=== PATIENT | female | born 1940 | race Caucasian/White ===

== ENCOUNTER → 2018-01-26 | Outpatient (CLI) | payer OTHER | LOC: FIMAGING 10:31 | PROVIDERS: ATTEND Family Medicine | DX: S32.020A Wedge compression fracture of second lumbar vertebra, initial encounter for closed fracture (principal); M51.36 Other intervertebral disc degeneration, lumbar region ==

== ENCOUNTER 2018-01-27 22:48 | Inpatient (IN) | payer OTHER ==
--- NOTE | 2018-01-27 23:40 | EDPHY ---
General Time Seen by Provider: 01/27/18 23:26 Narrative: CHIEF COMPLAINT: Back pain HISTORY OF PRESENT ILLNESS: Patient presents by private vehicle with her spouse with complaints of low back pain. This has been present since January 22. This occurred the day after a long day of gardening in her [place]. She denies any direct blow or trauma to the back. She woke on the with severe low back pain. Minimal radiation to the right leg. No numbness or tingling. No weakness. No incontinence of bowel or bladder. No retention of bowel bladder. She has significant low back pain that was worse with laying down or with ambulation. No position of comfort. She was seen by primary care physician and been taking ibuprofen, and subsequently diclofenac by mouth. She had an x-ray performed yesterday, but does not know the results. She has no chest pain or shortness of breath. She does have ongoing left knee pain for which she has received physical therapy and improving. No fever. No back injections. No history of surgery on the low back. No other associated complaints or modifying factors REVIEW OF SYSTEMS: 10 systems were reviewed and negative with the exception of the elements mentioned in the history of present illness. PCP: Dr. Floresita Diego SPECIALISTS: Dr. Lema PAST MEDICAL HISTORY: Hypertension, dyslipidemia, sciatic PAST SURGICAL HISTORY: No recent surgical history SOCIAL HISTORY: Nonsmoker. Lives independently with her spouse. 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 FAMILY HISTORY: Noncontributory EXAMINATION: General Appearance: Alert. Speaking in full sentences. Well appearing. He appears to be uncomfortable but in no acute distress Head: normocephalic, atraumatic Eyes: Pupils equal and round, no conjunctival pallor or injection ENT, Mouth: Mucous membranes moist Neck: Normal inspection, supple, non-tender Respiratory: Lungs are clear to auscultation Cardiovascular: Regular rate and rhythm. No murmur. Good signs of perfusion lower extremities symmetrically. Back: Mildly kyphotic appearance. There is midline tenderness on the lumbar spine over L2 and L3. No crepitus, step-off or deformity. Range of motion is limited by pain. Neurological: GCS 15. A&O, nonfocal, antalgic but steady gait without ataxia. Patellar reflexes are symmetric at 2+. Strength is 5/5 in the knees, ankles and great toes. Light sensation is symmetric in the lower extremities. Skin: Warm and dry, no rash Extremities: Nontender, no pedal edema Psychiatric: Mood and affect normal DIFFERENTIAL DIAGNOSES: Including but not limited to the vertebral fracture, sciatica, aneurysm, diskitis, spondylolisthesis, acute cord compression, muscular strain, disc herniation, disc rupture MDM: 11:40 p.m. Acute low back pain with possible new compression deformity of L2 of uncertain chronicity but new since 2008. The patient does have tenderness in this location on exam. I do not appreciate any evidence by history examination that would suggest acute cord compression or cauda equina. She is ambulatory but with significant pain. Due to her age, possible fracture, pain intolerance and IV will be established. Pain medication has been ordered. I have ordered MRI of the lumbar spine without contrast. I do not think that diskitis is likely as she has no fever, no hardware, no history of epidural or intrathecal injections. She is neuro intact distally. She is in no acute distress. 12:30 a.m. Patient re-evaluated. Pain is improved. 12:50 a.m. CBC, chemistry and inflammatory markers are within normal limits. MRI pending. 1:55 a.m. Notified by radiologist Dr. Castillo. Chronic disc bulge at multiple levels of the lumbar spine. No acute fracture or edema. Remainder of findings discussed as documented. I re-evaluated the patient. She still has moderate pain in the lumbar spine and now also as pain to the right posterior superior iliac spine. The patient was attempted to ambulate, but I do feel she is too unsteady on her feet. Also her pain is not controlled. I have ordered x-ray of the right hip and pelvis. I have ordered repeat pain medication. I will discuss with hospitalist for admission. 2:30 a.m. Case discussed with hospitalist Dr. Gibbs. She will admit the patient to her service. Patient is admitted in stable condition. X-ray of the hip as been performed, and it yielded only degenerative changes. No acute findings. SUPERVISION: Patient was independently examined, but I discussed the case with my secondary supervising physician Dr. Miller CONSULTATION: None - Diagnostics Imaging Results: Imaging Impressions Lumbar Spine MRI 01/27/18 23:40 Impression: 1. No evidence of acute fracture about the lumbar spine. Red marrow replacement of bone marrow possibly from underlying anemia. 2. Mild disk disease at L1-L2, L3-L4, and L4-L5 as detailed above. The study was performed as an emergency on-call case and discussed by telephone with Reece Jacobs PA-C at 0158 hrs. The final interpretation is concordant with the original communication. Hip X-Ray 01/28/18 02:07 Impression: Degenerative features with no acute osseous abnormality, and sequela of prior left hip arthroplasty. - History Smoking Status: Never smoked - Objective Vital Signs: Initial Vital Signs Temperature (C) 97.7 F 01/27/18 22:51 Heart Rate 96 01/27/18 22:51 Respiratory Rate 18 01/27/18 22:51 Blood Pressure 191/125 H 01/27/18 22:51 O2 Sat (%) 96 01/27/18 22:51 O2 Delivery Mode Room Air O2 (L/minute) 1 Allergies/Adverse Reactions: prochlorperazine [From Compazine] Allergy (Unknown, Verified 01/28/18 10:19) Unknown Home Medications: Medication Instructions Recorded Aspirin [Aspirin 81mg (*)] 81 mg PO DAILY 01/02/15 Hydrochlorothiazide [HCTZ (*)] 6.25 mg PO DAILY 01/02/15 Multivitamins [Multivitamin (*)] 1 each PO DAILY 01/02/15 Lovastatin 10mg 10 mg PO HS 01/28/18 Methylcellulose [Citrucel] 500 mg PO BID 01/28/18 Polyethylene Glycol 3350 [Miralax 17 gm PO DAILY 01/28/18 17 gm (*)] Laboratory Results: Laboratory Results 01/27/18 23:55 01/27/18 23:55 Medications Given: Hydrocodone Bitart/Acetaminophen ([place] 5/325) 1 - 2 tab PO Q4HRS PRN PRN Reason: Pain, Moderate Able to Take PO Stop: 02/07/18 02:42 Last Admin: 01/28/18 16:30 Dose: 2 tab Ketorolac Tromethamine (Toradol) 15 mg IVP Q8HRS KHLOE Stop: 02/02/18 05:59 Last Admin: 01/28/18 14:48 Dose: 15 mg Miscellaneous Information (Patch Removal) 2 ea TD DAILY KHLOE Stop: 07/27/18 08:59 Last Admin: 01/28/18 08:28 Dose: Not Given Senna/Docusate Sodium (Senokot-S) 1 - 2 tab PO BID KHLOE PRN Reason: Protocol Stop: 07/27/18 08:59 Last Admin: 01/28/18 08:27 Dose: Not Given Discontinued Medications Sodium Chloride (Ns) 500 mls @ 0 mls/hr IV EDNOW ONE; Wide Open PRN Reason: Protocol Stop: 01/27/18 23:42 Last Admin: 01/27/18 23:53 Dose: 500 mls Lorazepam (Ativan) 0.5 mg PO EDNOW ONE Stop: 01/28/18 02:43 Last Admin: 01/28/18 02:47 Dose: 0.5 mg Miscellaneous Medication (Icy Hot Lidocaine/Menthol 4%/1% Patch) 2 patch TD EDNOW ONE Stop: 01/28/18 02:43 Last Admin: 01/28/18 02:48 Dose: 2 patch Morphine Sulfate (Morphine) 2 mg IVP EDNOW ONE Stop: 01/27/18 23:42 Last Admin: 01/27/18 23:53 Dose: 2 mg Morphine Sulfate (Morphine) 2 mg IVP EDNOW ONE Stop: 01/28/18 02:08 Last Admin: 01/28/18 02:25 Dose: 2 mg Polyethylene Glycol (Miralax) 17 gm PO DAILY KHLOE PRN Reason: Protocol Stop: 07/27/18 08:59 Last Admin: 01/28/18 08:24 Dose: 17 gm Departure - Departure Disposition: [facility] Inpatient Acute Clinical Impression: Low back pain Qualifiers: Chronicity: acute Back pain laterality: right Sciatica presence: with sciatica Sciatica laterality: sciatica of right side Qualified Code(s): M54.41 - Lumbago with sciatica, right side Condition: Good
[2018-01-27] MEDS ORDERED: NS 500 ML IV ONE (23:41)
[2018-01-28 00:02] LABS: PLATELET COUNT 217 10^3/uL (150-400)
[2018-01-28] MEDS ORDERED: LORazepam 0.5 MG TAB PO ONE (02:42)
[2018-01-28] MEDS ORDERED: LIDOCAINE 4%/MENTHOL 1% PATCH TD ONE ×2 (02:42→02:46)
[2018-01-28] MEDS ORDERED: HYDROmorphone HCL 0.5 MG/0.5 ML SYR IVP PRN (02:43)
[2018-01-28] MEDS ORDERED: LORazepam 0.5 MG TAB PO PRN (02:43)
[2018-01-28] MEDS ORDERED: ONDANSETRON 4 MG/2 ML VIAL IVP PRN (02:43)
[2018-01-28] MEDS ORDERED: ACETAMINOPHEN 325 MG TAB PO PRN (02:43)
[2018-01-28] MEDS ORDERED: LORazepam 0.5 MG TAB ONE (02:46)
[2018-01-28] MEDS ORDERED: MAGNESIUM HYDROXIDE 30 ML UDCUP PO PRN (03:28)
[2018-01-28] MEDS ORDERED: LACTULOSE 20 GM/30 ML UDCUP PO PRN (03:28)
[2018-01-28] MEDS ORDERED: BISACODYL 10 MG SUPP PR PRN (03:28)
--- NOTE | 2018-01-28 04:35 | GHP ---
DATE OF ADMISSION: 01/28/2018 SOURCE: Patient provides history, is a fair historian. EMR was reviewed and case discussed with ED provider. CHIEF COMPLAINT: Intractable back pain. 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 The patient had also noted that she had radiating symptoms into her right hip and right butt, but no numbness or tingling down her leg or to her feet. The junior ent denies any acute injury or trauma. Her symptoms started suddenly on 01/22/2018. Prior to this, she did not complain of any symptoms. Her EMR, however, lists a history of sciatica, but patient can not recall having similar symptoms. The patient denies any bladder or bowel incontinence, or retenti on. She has had a good appetite. She does have a history of some chronic constipation, for which jan dietz takes MiraLAX on a regular basis at home. She had been taking ibuprofen, but she cannot recall how many milligrams she had been taking or how often. She states that her takes care of setting out medications. She did see her PCP and was prescribed diclofenac. She had also gone for an x-ray , which was completed, but she did not get followup yet for results. The patient denies any recent f lou, chills. No back surgeries or procedures previously. She is normally a pretty active person, exercising on a regular basis. REVIEW OF SYSTEMS: Negative except as noted above. ALLERGIES: To Compazine. HOME MEDICATIONS: As per EMR. Patient cannot recall her medications. Multivitamin, meclizine, HCTZ , calcium and vitamin D, aspirin 81 mg. 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 PAST SURGICAL HISTORY: Tonsillectomy, adenoidectomy, bilateral cataract extraction with lens placeme nts, total hip arthroplasty. FAMILY HISTORY: 1. Father , age 59, related to CVA. 2. Mother , age 92, related to dementia. SOCIAL HISTORY: Patient resides at the [facility] in a bungalow with her . She is normally quit e active and swims on a daily basis. 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 She does not smoke or utilize any il licit drugs, or marijuana. She does drink 1 gin and tonic on a daily basis. CODE STATUS: Full. PHYSICAL EXAMINATION: VITAL SIGNS: Upon arrival to the ED, blood pressure 191/125, heart rate is 96 , respiratory rate 18, O2 saturation 96% on room air, with a temperature of 36.5. Most recent vital signs available, blood pressure 171/91, heart rate 74, respiratory rate 16, O2 saturation 96% on room air. GENERAL: No acute distress, pleasant, adult female, is lying quite still on the bed. She dixon s appear uncomfortable. HEAD: Normocephalic, atraumatic. EYES: Extraocular muscles grossly intact . Pupils equal, round, symmetric. No scleral icterus or conjunctival injection. ENT: Mucous membr anes appear moist. No oropharyngeal erythema or exudates. Dentition intact. Neck supple. Trachea midline. CV: Regular rate and rhythm. No murmurs, rubs, or gallops appreciated. RESPIRATORY: Unl abored breathing. Lungs are clear to auscultation bilaterally. No wheezes, rales, or rhonchi apprec iated. Abdomen is soft, but full. Positive bowel sounds. Nontender to palpation. No rebound, guar ding, or masses appreciated. : No suprapubic tenderness to palpation. No Robledo catheter in place . EXTREMITIES: No cyanosis, clubbing, or edema appreciated. Patient is able to move her extremitie s while lying on bed. There are some limitations of the proximal lower extremity secondary to compla ints of back pain. NEUROLOGIC: Grossly nonfocal. Faint appreciation of right facial droop. Otherw ise, grossly normal. Moves all extremities. Sensation intact. MUSCULOSKELETAL: Patient with soft tissue tenderness over the right lower lumbar, sacral, and over the right trochanteric bursa, as well as the soft tissue in the buttocks. No significant bony tenderness to palpation. PSYCH: Patient i s a little bit anxious, but she is pleasant and cooperative. Awake, alert, and oriented x3. LABORATORY STUDIES: WBC 7.81, H and H of 16.0 and 46.5, MCV 95.1, platelet count is 217. No bands. Sodium is 143, potassium 3.9, chloride 104, CO2 of 26, BUN 22, anion gap 13, creatinine 0.8, GFR of greater than 60. Glucose is 112, calcium is 9.9. CRP is less than 5. IMAGING STUDIES: MRI: Image report and preliminary report reviewed, showing chronic disk bulging, d egenerative disks, L1-2, L3-4, L4-5 with associated mild spinal stenosis, with bilateral neuroforamin al stenosis. Hip, 2 views, showing degenerative joint in the right hip, status post total hip arthroplasty. Hardw are appears in place. No acute fractures. Constipation, fecaliths were present. Radiology report i s pending. ASSESSMENT AND PLAN: Pleasant 78-year-old female with history hypertension, hyperlipidemia, vertigo, now with a 6-day history of progressive worsening right low back pain and buttock pain. 1. Intractable back pain. The patient does have evidence of degenerative disk disease with some rachel roforaminal stenosis. No cord compression is appreciated. The patient also has significant degenera tive joint of the right hip, which may also be contributing to some of her symptoms. She has not had any acute injuries. No fractures are appreciated. PT/OT will be consulted. Patient did receive so me morphine in the emergency department, which did not significantly improve her symptoms. We will a dd some Ativan as muscle relaxant. Also, add on Toradol for a short-term course. Her renal function will tolerate this. We will monitor closely. PT/OT have been consulted. If patient continues to h ave severe symptoms and not able to get this under control, she may require inpatient versus outpatie nt followup with Orthopedics for further evaluation of her right hip and degenerative spine changes. 2. Underlying chronic medical problems. 3. Benign essential hypertension. Patient's blood pressure is slightly elevated, most likely relate d to her pain. Plan to resume her diuretic therapy in the morning. 4. Hyperlipidemia. The patient's med rec not yet updated. Resume any home medications. 5. 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 Nothing acute. 6. Constipation. Bowel regimen will be made available. Schedule her stool softener as well as her MiraLAX, which she reports she takes daily. Advised patient that narcotic use can worsen these sympt oms. 7. Fluids, electrolytes, and nutrition. Patient tolerating oral intake. We will continue to encour age and place patient on regular diet. 8. Prophylaxis. SCDs. Consider Lovenox tomorrow if patient should end up requiring additional hosp ital stay. Early mobilization will be encouraged. 9. Code status is full. 10. Disposition. Patient admitted to observation status on the Med/Surg floor pending pain control and PT evaluation. /[id number]/MODL
[2018-01-28] MEDS: KETOROLAC 15 MG/1 ML SDV IVP SCH ×3 (05:50→20:54)
[2018-01-28] MEDS: SENNOSIDES/DOCUSATE SODIUM TAB PO SCH ×3 (08:24→20:55)
[2018-01-28] MEDS: PATCH REMOVAL 1 EA PATCH TD SCH (08:28)
[2018-01-28] MEDS ORDERED: POLYETHYLENE GLYCOL 3350 17 GM PKT PO SCH (09:00)
[2018-01-28] MEDS: HYDROCODONE/APAP 5/325 TAB PO PRN ×2 (10:03→16:30)
--- NOTE | 2018-01-28 11:12 | HOSPPROG ---
Hospitalist Progress Note Assessment/Plan: 78y female with back pain. -Back pain unclear etiol cont supportive care pain meds -Hx bells palsy stable -Lknee pain chronic -r hip pain acute -constipation bowel therapy -Dispo unclear cont supportive care for pain control PT/OT Subjective: Up in chair. No issues. Objective: Vital Signs Temp Pulse Resp BP Pulse Ox 36.7 C 70 16 140/90 H 97 01/28/18 08:31 01/28/18 08:31 01/28/18 08:31 01/28/18 08:31 01/28/18 08:31 01/27/18 01/28/18 01/29/18 05:59 05:59 05:59 Intake Total 980 Output Total 600 100 Balance 380 -100 - Physical Exam Constitutional: appears nourished, chronically ill appearing Eyes: PERRL, anicteric sclera Ears, Nose, Mouth, Throat: moist mucous membranes, hearing normal Cardiovascular: No JVD, No edema Respiratory: no respiratory distress, reduced air movement Gastrointestinal: No tenderness, No ascites Skin: warm, normal color Musculoskeletal: pain with ROM, muscular tenderness, generalized weakness Neurologic: AAOx3 Psychiatric: not anxious, not encephalopathic, poor insight, poor judgement, poor memory ICD10 Worksheet Patient Problems: Problems Problem Status Onset Vertigo Acute Low back pain Acute
--- NOTE | 2018-01-28 15:20 | ASMTCMCOM ---
CM Note CM Note Notes: Pt was admitted with back pain. She has a hx of HTN, Treviño's palsy. She lives at the [facility] with her . She has had [facility] in the past. PT has cleared, OT recommending home care. Pain still an issue. CM will follow for any d/c needs. D/C plan: Anticipate home independent Date Signed: 01/28/2018 03:19 PM Electronically Signed By:KALIA Latham
--- NOTE | 2018-01-28 16:27 | PDMN ---
Medical Necessity Medical necessity: [facility] Pain Management: 78 y/o intractable back pain, right hip degenerative joint and degenerative disk disease w/ some neuroformainal stenosis. attempted IV opioids w/ little effect, over night pain still not controlled with opioids, IV toradol, and ativan PT/OT consults, remains hypertensive. Admit to IP status per [employer] order 01/28/18 @ 1320 to obtain adequate pain control, consider surgical consult. hx HTN, hyperlipidemia, vertigo, olea's palsy
[2018-01-28] MEDS: LIDOCAINE 4%/MENTHOL 1% PATCH TD SCH (20:56)
[2018-01-28] MEDS: PRAVASTATIN SODIUM 10 MG TAB PO SCH (20:56)
[2018-01-28] MEDS: METHYLCELLULOSE 500 MG PO SCH (22:20)
[2018-01-29] MEDS: KETOROLAC 15 MG/1 ML SDV IVP SCH ×2 (06:10→15:46)
[2018-01-29] MEDS: POLYETHYLENE GLYCOL 3350 17 GM PKT PO SCH (08:44)
[2018-01-29] MEDS: SENNOSIDES/DOCUSATE SODIUM TAB PO SCH ×2 (08:45→20:53)
[2018-01-29] MEDS: HYDROCODONE/APAP 5/325 TAB PO PRN (08:46)
[2018-01-29] MEDS: MULTIVITAMINS 1 EACH TAB PO SCH (08:47)
[2018-01-29] MEDS ORDERED: HYDROCHLOROTHIAZIDE 12.5 MG CAP PO SCH (09:00)
[2018-01-29] MEDS ORDERED: ASPIRIN 81 MG CHEWABLE TAB PO SCH (09:00)
[2018-01-29] MEDS: METHYLCELLULOSE 500 MG PO SCH (09:10)
[2018-01-29] MEDS: PATCH REMOVAL 1 EA PATCH TD SCH (09:11)
[2018-01-29] MEDS: HYDROCHLOROTHIAZIDE 25 MG TAB PO SCH (09:13)
--- NOTE | 2018-01-29 10:06 | HOSPPROG ---
Hospitalist Progress Note Assessment/Plan: Patient is a 78-year-old female with history hypertension, hyperlipidemia, vertigo, now with a 6-day history of progressive worsening right low back pain and buttock pain.Today is my first encounter w the patient, chart reviewed. Discussed her care with her RN, Wanda. * Intractable back pain w radiculopathy - MRI shows chronic disk bulging, degenerative disks, L1-2, L3-4, L4-5 with associated mild spinal stenosis, with bilateral neuroforaminal stenosis. - Toradol and norco - will do a trial of gabapentin - asked neurosurgery to see, ? if she would qualify for a steroid injection - she is very active, enjoys swimming and is unable to do so *HTN -bp stable *constipation *Hx bells palsy stable *L knee pain/ had a fall in the past chronic *hip pain -not c/o of this at this time *Plan: will ask neurosurgery to see today Subjective: Dian says her pain is controlled w the narcotics but is concerned about going back to her regular physical activity. Objective: Vital Signs Temp Pulse Resp BP Pulse Ox 36.8 C 85 14 139/75 H 92 01/29/18 08:00 01/29/18 09:16 01/29/18 09:16 01/29/18 09:16 01/29/18 09:16 01/28/18 01/29/18 01/30/18 05:59 05:59 05:59 Intake Total 650 Balance 650 - Physical Exam Constitutional: no apparent distress, uncomfortable Eyes: PERRL Ears, Nose, Mouth, Throat: hearing normal Cardiovascular: regular rate and rhythym Respiratory: no respiratory distress Skin: warm Neurologic: AAOx3 Psychiatric: interacting appropriately, not anxious ICD10 Worksheet Patient Problems: Problems Problem Status Onset Low back pain Acute Vertigo Acute
[2018-01-29] MEDS: GABAPENTIN 100 MG CAP PO SCH (10:48)
--- NOTE | 2018-01-29 14:12 | GCON ---
NEUROSURGICAL CONSULTATION CHIEF COMPLAINT: Right leg pain. HISTORY OF PRESENT ILLNESS: The patient is a 78-year-old female who approximately 6 days ago was gar dening and developed some right hip and lateral thigh pain. Her symptoms progressed and she was admi tted to [facility] on 01/28/2018. An MRI of the lumbar spine was obtained and it souleymane wed multilevel disk degeneration with some stenosis. A neurosurgical consultation was requested. Jj dietz currently complains of pain in her right hip and buttock with pain radiating on the right posterior lateral thigh to the anterior portion of her right knee. The pain does not extend below her right k nee and she is not having left leg pain. She denies any low back pain, weakness, paresthesias, ataxi a, or bowel or bladder problems. She has tried exercise and lenp-unv-bqkawgp pain medications, inclu ding anti-inflammatory medications, with no improvement. PAST MEDICAL HISTORY: 1. Hypertension. 2. Hyperlipidemia. 3. Vertigo. 4. Chronic constipation. 5. History of Treviño's palsy. MEDICATIONS: Prior to admission are aspirin, hydrochlorothiazide, lovastatin, Citrucel, multivitamin , and MiraLAX. PAST SURGICAL HISTORY: 1. Tonsillectomy. 2. Adenoidectomy. 3. Bilateral cataract extraction. 4. Left hip arthroplasty. FAMILY HISTORY: Patient's father is at age 59 related to a CVA. Her mother at age 92 from dementia. SOCIAL HISTORY: Patient is with grown children. She drinks alcohol socially, but denies smo alban or drug use. REVIEW OF SYSTEMS: Negative. PHYSICAL EXAM: GENERAL: Patient is a 78-year-old female, sitting in a chair in a mild amount of dist ress. HEAD, EYES, EARS, NOSE AND THROAT: Negative for drainage. EXTREMITIES: [place], warm, and dry. NEUROLOGICAL: The patient is awake, alert, oriented x4. Pupils equal, round, r eactive to light. Extraocular motions are intact. There is no evidence of facial droop. Tongue and uvula are midline. Spinal accessory muscles are intact. Her motor strength is 5/5 in her arms and legs. Sensation is grossly intact to light touch in her arms and legs. Deep tendon reflexes are 1/4 with the exception of right patellar, which is 0/4. There is a negative Arturo with no clonus. DIAGNOSTIC STUDIES: An MRI of the lumbar spine from [facility] on 01/28/2018 shows p reservation of the sagittal alignment. There are moderate multilevel degenerative changes. At L3-4, there is a small broad-based disk herniation with ligamentum hypertrophy that produces mild right-si ded lateral recess stenosis. At L3-4, there is a right-sided paracentral broad-based disk herniation that produces right-sided nyqh-dv-ergmryxs lateral recess stenosis. IMPRESSION: This is a 78-year-old female with a recent flare-up of right L4 radicular symptoms that are likely related to her mild right-sided L3-4 and L4-5 lateral recess stenosis. She is neurologica lly stable. PLAN: All the above discussed in detail with the patient. This patient was seen and examined with Marvin Kingsley present. At this point in time, we would like her to continue with a course of conservativ e care. Medicine has started her on Neurontin. We will continue with this. It was discussed with t he patient that she can consider a Medrol Dosepak or consider an epidural steroid injection with Inte rventional Radiology. She would like to proceed with an epidural injection and a right L4 transforam inal epidural steroid injection was ordered through Interventional Radiology. We will make her n.p.o . in hopes of getting an epidural steroid injection today. We will evaluate her progress and see how she responds to this conservative care. Please call with any neurological changes. /[id number]/MODL
[2018-01-29] MEDS: LIDOCAINE 4%/MENTHOL 1% PATCH TD SCH (20:53)
[2018-01-29] MEDS: PSYLLIUM METAMUCIL 1 PKT PO SCH (20:53)
[2018-01-29] MEDS: PRAVASTATIN SODIUM 10 MG TAB PO SCH (20:53)
[2018-01-30] MEDS: HYDROCHLOROTHIAZIDE 25 MG TAB PO SCH (07:33)
[2018-01-30] MEDS: GABAPENTIN 100 MG CAP PO SCH (07:33)
[2018-01-30] MEDS: HYDROCODONE/APAP 5/325 TAB PO PRN ×2 (07:36→12:47)
[2018-01-30] MEDS ORDERED: IOPAMIDOL (ISOVUE-M 300) 15 ML VIAL ONE (07:42)
[2018-01-30] MEDS ORDERED: TRIAMCINOLONE ACETONIDE 200 MG/5 ML MDV IM ONE (07:42)
[2018-01-30] MEDS ORDERED: NALOXONE HCL 0.4 MG/ML INJ IVP PRN (07:51)
[2018-01-30] MEDS ORDERED: fentaNYL 100 MCG/2 ML INJ IVP PRN (07:51)
[2018-01-30] MEDS ORDERED: FLUMAZENIL 0.5 MG/5 ML MDV IVP PRN (07:51)
[2018-01-30] MEDS ORDERED: MIDAZOLAM 2 MG/2 ML VIAL IVP PRN (07:51)
[2018-01-30] MEDS ORDERED: NS 1,000 ML IV SCH (08:00)
--- NOTE | 2018-01-30 08:05 | SOAPPROG ---
Downtime Inpatient Late Entry SOAP Note: Dian is about the same this am. She is scheduled for a TFESI for the L4 root at the L45 level on the right this morning. -toña luna md
--- NOTE | 2018-01-30 08:34 | HOSPPROG ---
Hospitalist Progress Note Assessment/Plan: Patient is a 78-year-old female with history hypertension, hyperlipidemia, vertigo, now with a 6-day history of progressive worsening right low back pain and buttock pain. * Intractable back pain w radiculopathy - MRI shows chronic disk bulging, degenerative disks, L1-2, L3-4, L4-5 with associated mild spinal stenosis, with bilateral neuroforaminal stenosis. - Toradol and norco - will do a trial of gabapentin - to get an JULIO C today *HTN -bp elevated, suspect this is from pain *constipation *Hx bells palsy stable *L knee pain/ had a fall in the past chronic *hip pain -not c/o of this at this time *Plan: steroid injection Subjective: Dian is having ongoing back pain. Objective: Vital Signs Temp Pulse Resp BP Pulse Ox 36.9 C 91 20 155/95 H 95 01/30/18 07:40 01/30/18 07:40 01/30/18 07:40 01/30/18 07:40 01/30/18 07:40 01/29/18 01/30/18 01/31/18 05:59 05:59 05:59 Intake Total 650 0 Output Total 300 Balance 650 -300 - Physical Exam Constitutional: uncomfortable Eyes: PERRL Ears, Nose, Mouth, Throat: hearing normal Respiratory: no respiratory distress Skin: warm Musculoskeletal: generalized weakness Neurologic: AAOx3 Psychiatric: interacting appropriately ICD10 Worksheet Patient Problems: Problems Problem Status Onset Low back pain Acute Vertigo Acute
--- NOTE | 2018-01-30 09:13 | PDPROPOC ---
Sedation Plan of Care ASA Classification: ASA 2 Mallampati Score: Class 2 Mallampati Reference Image:
[2018-01-30] MEDS ORDERED: MIDAZOLAM 2 MG/2 ML VIAL ONE (09:23)
[2018-01-30] MEDS ORDERED: NALOXONE HCL 0.4 MG/ML INJ ONE (09:23)
[2018-01-30] MEDS ORDERED: fentaNYL 100 MCG/2 ML INJ ONE (09:23)
[2018-01-30] MEDS ORDERED: FLUMAZENIL 0.5 MG/5 ML MDV IVP ONE (09:23)
[2018-01-30] MEDS: METHOCARBAMOL 750 MG TAB PO PRN (11:03)
[2018-01-30] MEDS: PATCH REMOVAL 1 EA PATCH TD SCH (12:31)
[2018-01-30] MEDS: MULTIVITAMINS 1 EACH TAB PO SCH (12:47)
[2018-01-30] MEDS: SENNOSIDES/DOCUSATE SODIUM TAB PO SCH ×2 (12:47→21:04)
[2018-01-30] MEDS ORDERED: oxyCODONE IR 5 MG TAB PO PRN (13:20)
[2018-01-30] MEDS: POLYETHYLENE GLYCOL 3350 17 GM PKT PO SCH (14:15)
[2018-01-30] MEDS: PSYLLIUM METAMUCIL 1 PKT PO SCH ×2 (14:15→20:53)
--- NOTE | 2018-01-30 15:26 | ASMTCMCOM ---
CM Note CM Note Notes: Pt to have steroid injection today. Voicemail received from [facility], pt is open with PT and will need orders sent to resume care. PT rec home. CM to follow. Date Signed: 01/30/2018 03:25 PM Electronically Signed By:KALIA Ovalles
[2018-01-30] MEDS: PRAVASTATIN SODIUM 10 MG TAB PO SCH (20:54)
[2018-01-30] MEDS: LIDOCAINE 4%/MENTHOL 1% PATCH TD SCH (20:54)
--- NOTE | 2018-01-31 08:23 | NEUSURGPN ---
Assessment/Plan: Assessment: 78 yo female admitted to hospitalist with RLE pain. Pt with a right L4 radicular pain Plan: -RLE pain: better this am after the injection done yesterday. She has some right lateral leg pain -I spoke with the and they are encouraged about the injection and the improvement to this point -will dc patient today with follow up with Dr Churchill team in 2-3 weeks- and patient in agreement with this as well -call with any questions or concerns -PT/OT-CPM -take medications as directed -d/w Dr Kingsley -pt and understand and agree with plan Subjective: Awake and alert. NAD. Eating/drinking and voiding. No f/c/n/v/d. Objective: AAO x 3, PERRLA/EOMI no droop CN 2-12 grossly intact +lt touch 5/5 BUE/BLE = Neuro Check Frequency: per routine Urinary Catheter in Place: No - Physician Discussed Patient with : Sancho Patient Seen by : Sancho Neurosurgery Physical Exam - Vitals, I&O, Labs I and O 01/30/18 01/31/18 02/01/18 05:59 05:59 05:59 Intake Total 0 850 300 Output Total 300 700 Balance -300 150 300 Intake: Oral (ml) 0 750 300 IV Intake (ml) 100 Output: Urine (ml) 300 700 Bedside Commode 300 Toilet 300 400 Other: Intake Quantity Yes Sufficient Number of Voids Bedside Commode 1 Toilet 1 3 Number of Stools Bedside Commode 1 Toilet 1 Vital Signs Temp Pulse Resp BP Pulse Ox 36.7 C 86 16 166/91 H 94 01/31/18 04:00 01/31/18 04:00 01/31/18 04:00 01/31/18 04:00 01/31/18 04:00 ICD10 Worksheet Patient Problems: Problems Problem Status Onset Low back pain Acute Vertigo Acute
[2018-01-31 08:26] VITALS: BP 166/86
[2018-01-31] MEDS: PSYLLIUM METAMUCIL 1 PKT PO SCH (08:27)
[2018-01-31] MEDS: POLYETHYLENE GLYCOL 3350 17 GM PKT PO SCH (08:27)
[2018-01-31] MEDS: GABAPENTIN 100 MG CAP PO SCH (08:27)
[2018-01-31] MEDS: METHOCARBAMOL 750 MG TAB PO PRN (08:27)
[2018-01-31] MEDS: SENNOSIDES/DOCUSATE SODIUM TAB PO SCH (08:27)
[2018-01-31] MEDS: MULTIVITAMINS 1 EACH TAB PO SCH (08:27)
[2018-01-31] MEDS: HYDROCHLOROTHIAZIDE 25 MG TAB PO SCH (08:29)
[2018-01-31] MEDS: PATCH REMOVAL 1 EA PATCH TD SCH (08:31)
--- NOTE | 2018-01-31 09:06 | GDS ---
DISPOSITION: Home. PRIMARY DIAGNOSES: Intractable back pain, lumbar stenosis, L4 radicular pain with degenerative disk disease and lateral recess stenosis at L4-5 and L3-4. OPERATION/PROCEDURES: An MRI and imaging including injection of lumbar spine per interventional radi ology. HOSPITAL COURSE: The patient is a 78-year-old female who was admitted to the internal medicine [facility], and we were consulted for lower back pain and right lower extremity pain. She underwent an MRI o f the lumbar spine, which showed mild right L3-4 and noted lateral recess stenosis at L4-5. We tried pain management. We added Neurontin to her as well. We saw the patient in consultation on 01/30/20, and recommended injection. On 01/30/2018, she underwent injection of lumbar spine and tolerated this well. On 01/31/2018, when I saw the patient, she was doing better, had made improvements, and w ished to be discharged. I did speak with Dr. Jalil Ansari from the hospital service, and was okayed f or the patient's discharge. He did review through her medications, and would like the patient to con tinue with the amlodipine, Norvasc 2.5 mg p.o. daily, as well as her other home medications, and the patient was instructed both verbally to her and her and in written form that she should follo w up with her primary care provider for recheck of her blood pressures. It was recommended to her th at she keep track of daily blood pressures for her followup discussion with her PCP. A prescription for oxycodone was written, as well as methocarbamol and gabapentin. She will continue with her home medications as written in med rec form. The patient improved from her injection. She will follow up with Dr. Kingsley's team in 2-3 weeks for recheck and evaluation. CONSULTS: Neurosurgery, admitted to hospitalist primary. COMPLICATIONS: None. DISCHARGE CONDITION: Stable, improved. DISCHARGE INSTRUCTIONS: Standard discharge instructions given to the patient following evaluation of the lumbar stenotic problem status post injection. We talked about worsening symptoms, new pain, we akness, numbness, tingling, loss of bowel or bladder control, problems with gait or balance. She keo l follow up with us in our office in 2 weeks for a recheck and evaluation. She should call sooner if any problems arise. She will also follow up with her PCP for recheck and evaluation. She did under go the lumbar spine MRI. She also underwent hip films, which showed degenerative changes, but no oss eous abnormality and prior left arthroplasty was noted of the hip. All questions and concerns were a nswered. /[id number]/MODL
--- NOTE | 2018-01-31 10:26 | PDIAF ---
- Diagnosis Diagnosis: Lumbar stenosis Code Status: Full Code - Medication Management Discharge Medications: Medications to Continue on Transfer Aspirin [Aspirin 81mg (*)] 81 mg PO DAILY 01/02/15 [Last Taken 01/02/15] Hydrochlorothiazide [HCTZ (*)] 6.25 mg PO DAILY 01/02/15 [Last Taken 01/02/15] Multivitamins [Multivitamin (*)] 1 each PO DAILY 01/02/15 [Last Taken 01/02/15] Lovastatin 10mg 10 mg PO HS 01/28/18 [Last Taken Unknown] Methylcellulose [Citrucel] 500 mg PO BID 01/28/18 [Last Taken Unknown] Polyethylene Glycol 3350 [Miralax 17 gm (*)] 17 gm PO DAILY 01/28/18 [Last Taken Unknown] Acetaminophen [Tylenol 325mg (*)] 650 mg PO Q4HRS PRN tab 01/31/18 [Last Taken Unknown] Gabapentin [Neurontin 100 MG (*)] 100 mg PO DAILY #20 cap 01/31/18 [Last Taken Unknown] Methocarbamol [Robaxin 750 mg (*)] 750 mg PO TID PRN #30 tab 01/31/18 [Last Taken Unknown] Patch Removal 2 ea TD DAILY patch 01/31/18 [Last Taken Unknown] amLODIPine BESYLATE [Norvasc 2.5 mg (*)] 2.5 mg PO DAILY #14 tab 01/31/18 [Last Taken Unknown] oxyCODONE IR [Oxycodone Ir (*)] 5 mg PO Q4HRS PRN #30 tab 01/31/18 [Last Taken Unknown] 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 PICC Care - Routine: N/A - Orders Services needed: Home Care, Registered Nurse, Physical Therapy Home Care Face to Face: I certify that this patient was under my care and that I had the required [id number] encounter meeting the encounter requirements on the discharge day. My findings support the fact that the patient is homebound as defined in Home Care Face to Face Continued: CMS Chapter 7 Medicare Benefits Manual 30.1.1 , The condition of the patient is such that there exists a normal inability to leave home and consequently, leaving home would require a considerable and taxing effort. Diet Recommendation: no restrictions on diet Diet Texture: Regular Texture Diet Tube feeding: none [place]: Not applicable Additional Instructions: Check your blood pressures daily and keep track of this information. Follow up with your PCP for a recheck and discussion of your blood pressures in 1-[address] Churchill team for your back in 2 weeks Call with any questions or concerns Pt understands and agrees - Follow Up Care Current Providers and Referrals: Floresita Diego MD [Primary Care Provider] - As per Instructions (follow up in 1 -2 weeks for a recheck of your blood pressures) Yobany Kingsley MD [Medical Doctor] - (recheck in 2-3 weeks)
--- NOTE | 2018-01-31 14:17 | ASMTLACE ---
LACE Length of stay for Answers: 4-6 days current admission Acuity / Level of Answers: Yes Care: Did the patient have an inpatient admission? Comorbidities - select Answers: Opioid dependence all that apply / Chronic pain Other Notes: HTN, Treviño's palsy # of Emergency department Answers: 1-2 visits in the last 6 months Score: 13 Date Signed: 01/31/2018 02:16 PM Electronically Signed By:KALIA Ovalles
--- NOTE | 2018-01-31 14:18 | ASMTCMCOM ---
CM Note CM Note Notes: Pt medically stable for d/c back to [facility] [place] with and continued PT with [facility]. Orders sent in [employer] and voicemail left for Deepali [phone]. Date Signed: 01/31/2018 02:17 PM Electronically Signed By:KALIA Ovalles
--- NOTE | 2018-02-01 10:36 | ASDISCHSUM ---
Discharge Information Plan Status:Home with Home Health Medically Cleared to Leave: Discharge Date:01/31/2018 11:47 AM D/C Disposition:Home Health Service ADT D/C Disposition:Home, Routine, Self-Care Projected Discharge Date:01/31/2018 11:00 AM Transportation at D/C: Discharge Delay Reason: Follow-Up Date:01/31/2018 11:00 AM Discharge Slot: Final Diagnosis: Placement Information Referral Type:*Home Health Care Services Referral ID:[id number] Provider Name[facility] [facility] 2: City:[place] Selection Factors: State:[place] Patient Contact Information Contact Name:SARAH Relationship: Address:[address] [place] [address] City:[place] Alternate Phone: State/Zip Code:[place] [address] Email: Financial Information Financial Class:Medicare Primary Plan Desc:MEDICARE INPATIENT Primary Plan Number:[id number] Secondary Plan Desc:[employer] PPO Secondary Plan Number:[id number] Assessment Information LACE LACE Length of stay for Answers: 4-6 days current admission Acuity / Level of Answers: Yes Care: Did the patient have an inpatient admission? Comorbidities - select Answers: Opioid dependence all that apply / Chronic pain Other Notes: HTN, Treviño's palsy # of Emergency department Answers: 1-2 visits in the last 6 months Score: 13 Date Signed: 01/31/2018 02:16 PM Electronically Signed By:KALIA Ovalles KEVIN CM Progress Note CM Note CM Note Notes: Pt was admitted with back pain. She has a hx of HTN, Treviño's palsy. She lives at the [facility] with her . She has had [facility] in the past. PT has cleared, OT recommending home care. Pain still an issue. CM will follow for any d/c needs. D/C plan: Anticipate home independent Date Signed: 01/28/2018 03:19 PM Electronically Signed By:KALIA Latham [facility] CM Progress Note CM Note CM Note Notes: Pt to have steroid injection today. Voicemail received from [facility], pt is open with PT and will need orders sent to resume care. PT rec home. CM to follow. Date Signed: 01/30/2018 03:25 PM Electronically Signed By:KALIA Ovalles [facility] CM Progress Note CM Note CM Note Notes: Pt medically stable for d/c back to [facility] with and continued PT with [facility] . Orders sent in [employer] and voicemail left for Deepali [phone]. Date Signed: 01/31/2018 02:17 PM Electronically Signed By:KALIA Ovalles Intervention Information Intervention Type:*IM-Signed Date of Service:01/31/2018 10:52 AM Patient Type:Inpatient Staff Member:Eusebia Ybarra Hours: Discipline: Severity: Comment:
== END 2018-01-31 11:47 | disposition home health service (06) | DRG 552 ==
LOC: F3N 01-28 03:24 → OBSVTOIN 01-28 13:29
PROVIDERS: ADMIT Family Medicine; ATTEND Family Medicine
DX: M48.061 Spinal stenosis, lumbar region without neurogenic claudication (principal); M51.36 Other intervertebral disc degeneration, lumbar region; E86.9 Volume depletion, unspecified; I10 Essential (primary) hypertension; E78.5 Hyperlipidemia, unspecified; G51.0 Bell's palsy; K59.09 Other constipation
CPT/HCPCS: 96374; 97116-GP; 97161-GP; 97165-GO; 97530-GP; 97535-GO; G8978-GP-CJ; G8979-GP-CI; G8980-GP-CI; G8987-GO-CM; G8988-GO-CK; J1885; J2250; J2270; J2310; J3010; J3301; Q9967

== ENCOUNTER → 2018-02-22 | Outpatient (CLI) | payer OTHER | LOC: FIMAGING 17:19 | DX: M25.551 Pain in right hip (principal); M51.36 Other intervertebral disc degeneration, lumbar region; M41.86 Other forms of scoliosis, lumbar region ==

== ENCOUNTER 2018-04-12 06:24 | Outpatient (CLI) | payer OTHER ==
--- NOTE | 2018-04-12 08:21 | PDANEPAE ---
ANE History of Present Illness 78 yo for mri ANE Past Medical History - Cardiovascular History Hx Hypertension: Yes Hx Arrhythmias: No Hx Chest Pain: No Hx Coronary Artery / Peripheral Vascular Disease: No Hx CHF / Valvular Disease: No Hx Palpitations: No - Pulmonary History Hx COPD: No Hx Asthma/Reactive Airway Disease: No Hx Recent Upper Respiratory Infection: No Hx Oxygen in Use at Home: No Hx Sleep Apnea: No Sleep Apnea Screening Result - Last Documented: Positive - Neurologic History Hx Cerebrovascular Accident: No Hx Seizures: No Hx Dementia: Yes - Endocrine History Hx Diabetes: No - Renal History Hx Renal Disorders: No - Liver History Hx Hepatic Disorders: No - Neurological & Psychiatric Hx Hx Neurological and Psychiatric Disorders: Yes Neurological / Psychiatric History Comment: Anxious - Cancer History Hx Cancer: No - Congenital Disorder History Hx Congenital Disorders: No - GI History Hx Gastrointestinal Disorders: No - Chronic Pain History Chronic Pain: No - Surgical History Prior Surgeries: Left hip replaced. Cataract ANE Review of Systems Review of Systems: - Exercise capacity METS (RN): 4 METS ANE Patient History - Allergies Allergies/Adverse Reactions: prochlorperazine [From Compazine] Allergy (Unknown, Verified 01/28/18 10:19) Unknown - Home Medications Home medications: home medication list seen and reviewed Home Medications: Aspirin [Aspirin 81mg (*)] 81 mg PO DAILY 01/02/15 [Last Taken 04/11/18] Hydrochlorothiazide [HCTZ (*)] 6.25 mg PO DAILY 01/02/15 [Last Taken 04/11/18] Multivitamins [Multivitamin (*)] 1 each PO DAILY 01/02/15 [Last Taken 04/11/18] Lovastatin 10mg 10 mg PO HS 01/28/18 [Last Taken 04/11/18] Methylcellulose [Citrucel] 500 mg PO BID 01/28/18 [Last Taken 04/11/18] Polyethylene Glycol 3350 [Miralax 17 gm (*)] 17 gm PO DAILY 01/28/18 [Last Taken 04/11/18] - NPO status NPO Status: no food or drink >8 hours - Anes Hx Anes Hx: no prior problems - Smoking Hx Smoking Status: Never smoked - Family Anes Hx Family Hx Anesthesia Complications: None known ANE Labs/Vital Signs - Vital Signs Blood Pressure: 146/83 Heart Rate: 79 Respiratory Rate: 20 O2 Sat (%): 94 Height: 5 ft 6 in Weight: 60.328 kg ANE Physical Exam - Airway Neck exam: FROM Mallampati Score: Class 2 Mouth exam: normal dental/mouth exam - Pulmonary Pulmonary: no respiratory distress - Cardiovascular Cardiovascular: regular rate and rhythym - ASA Status ASA Status: II ANE Anesthesia Plan Anesthesia Plan: GA w LMA
[2018-04-12] MEDS ORDERED: PROPOFOL/EMULSION 500 MG/50 ML BOTTLE IV ONE (08:23)
[2018-04-12] MEDS ORDERED: PROPOFOL 200 MG/20 ML VIAL ONE (08:23)
[2018-04-12] MEDS ORDERED: NALOXONE HCL 0.4 MG/ML INJ IVP PRN (09:25)
--- NOTE | 2018-04-12 09:26 | POSTANESTH ---
Post Anesthetic Evaluation Cardiovascular Status: Normal, Stable Respiratory Status: Normal, Stable Level of Consciousness/Mental Status: Mildly Sleepy, Arousable Pain Control: Adequate, Prn Tx Ordered Nausea/Vomiting Control: Adequate, Prn Tx Ordered Complications Possibly Related to Anesthesia: None Noted
[2018-04-12 10:45] VITALS: BP 135/78
[2018-04-12] MEDS ORDERED: LIDOCAINE 2% 2 ML INJ ONE (16:50)
[2018-04-12] MEDS ORDERED: ONDANSETRON 4 MG/2 ML VIAL ONE (16:50)
== END 2018-04-12 10:35 | disposition home or self-care (01) ==
LOC: FIMAGING 06:24
PROVIDERS: ATTEND Neurological Surgery
DX: M99.83 Other biomechanical lesions of lumbar region (principal); M51.36 Other intervertebral disc degeneration, lumbar region; M51.37 Other intervertebral disc degeneration, lumbosacral region; M46.96 Unspecified inflammatory spondylopathy, lumbar region; M46.97 Unspecified inflammatory spondylopathy, lumbosacral region; M48.07 Spinal stenosis, lumbosacral region
CPT/HCPCS: 72148; J2405; J2704

== ENCOUNTER 2018-05-30 05:14 | Observation (INO) | payer OTHER ==
--- NOTE | 2018-05-30 06:52 | PDHPUP ---
History & Physical Update H&P update statement: This history and physical update is based on an assessment of the patient which was completed after admission or registration (within 24 hours), but prior to the surgery/procedure. H&P update: H&P reviewed & patient examined, no change in patient's condition since H&P completed
[2018-05-30] MEDS ORDERED: HYDROCHLOROTHIAZIDE 12.5 MG CAP PO SCH (09:00)
[2018-05-30] MEDS ORDERED: ACETAMINOPHEN 500 MG TAB PO ONE (10:52)
[2018-05-30] MEDS ORDERED: ceFAZolin 2 GM/DEXTROSE 100 ML IV ONE (10:52)
[2018-05-30] MEDS ORDERED: GABAPENTIN 300 MG CAP PO ONE (10:52)
[2018-05-30] MEDS ORDERED: LIDOCAINE 1% 2 ML INJ ID PRN (10:53)
[2018-05-30] MEDS ORDERED: LR 1,000 ML IV ONE (10:53)
[2018-05-30] MEDS ORDERED: KETAMINE 200 MG/20 ML VIAL ONE (11:05)
[2018-05-30] MEDS ORDERED: fentaNYL 100 MCG/2 ML INJ ONE (11:05)
[2018-05-30] MEDS ORDERED: PROPOFOL/EMULSION 500 MG/50 ML BOTTLE IV ONE (11:05)
[2018-05-30] MEDS ORDERED: DEXAMETHASONE 4 MG/ML VIAL ONE (11:06)
[2018-05-30] MEDS ORDERED: ROCURONIUM 50 MG/5 ML VIAL ONE (11:06)
[2018-05-30] MEDS ORDERED: BACITRACIN 50,000 UNITS/10 ML SYR IRR ONE (11:07)
[2018-05-30] MEDS ORDERED: CHLORHEXIDINE GLUC HIBICLENS 118 ML BTL TP ONE (11:07)
[2018-05-30] MEDS ORDERED: BUPIVACAINE 0.25% 30 ML SDV ONE (11:07)
[2018-05-30] MEDS ORDERED: THROMBIN (BOVINE) 5,000 UNIT VIAL TP ONE (11:07)
[2018-05-30] MEDS ORDERED: EPINEPHrine 1 MG/ML INJ ONE (11:07)
[2018-05-30] MEDS ORDERED: LACTULOSE 20 GM/30 ML UDCUP PO PRN (11:33)
[2018-05-30] MEDS ORDERED: METHOCARBAMOL 750 MG TAB PO PRN (11:33)
[2018-05-30] MEDS ORDERED: diphenhydrAMINE 25 MG CAP PO PRN (11:33)
[2018-05-30] MEDS ORDERED: BISACODYL 10 MG SUPP PR PRN (11:33)
[2018-05-30] MEDS ORDERED: oxyCODONE IR 5 MG TAB PO PRN (11:33)
[2018-05-30] MEDS ORDERED: HYDROmorphONE/DILAUDID 1 MG/ML INJ IVP PRN (11:33)
[2018-05-30] MEDS ORDERED: ONDANSETRON 4 MG/2 ML VIAL IVP PRN (11:33)
[2018-05-30] MEDS ORDERED: MAGNESIUM HYDROXIDE 30 ML UDCUP PO PRN (11:33)
[2018-05-30] MEDS ORDERED: ONDANSETRON DISINTEGRATING 4 MG TAB PO PRN (11:33)
--- NOTE | 2018-05-30 11:34 | PDANEPAE ---
ANE History of Present Illness L2-3 discectomy ANE Past Medical History - Cardiovascular History Hx Hypertension: Yes Hx Arrhythmias: No Hx Chest Pain: No Hx Coronary Artery / Peripheral Vascular Disease: No Hx CHF / Valvular Disease: No Hx Palpitations: No - Pulmonary History Hx COPD: No Hx Asthma/Reactive Airway Disease: No Hx Recent Upper Respiratory Infection: No Hx Oxygen in Use at Home: No Hx Sleep Apnea: No Sleep Apnea Screening Result - Last Documented: Negative - Neurologic History Hx Cerebrovascular Accident: No Hx Seizures: No Hx Dementia: Yes - Endocrine History Hx Diabetes: No - Renal History Hx Renal Disorders: No - Liver History Hx Hepatic Disorders: No - Neurological & Psychiatric Hx Hx Neurological and Psychiatric Disorders: Yes Neurological / Psychiatric History Comment: AnxiETY - Cancer History Hx Cancer: No - Congenital Disorder History Hx Congenital Disorders: No - GI History GERD: no Hx Gastrointestinal Disorders: No Gastrointestinal History Comment: CONSTIPATION - Other Health History Other Health History: NEG - Chronic Pain History Chronic Pain: Yes (LOW BACK PAIN & LEG PAIN) - Surgical History Prior Surgeries: L CHLOE. Cataract ANE Review of Systems Review of Systems: - Exercise capacity METS (RN): 4 METS ANE Patient History - Allergies Allergies/Adverse Reactions: prochlorperazine [From Compazine] Allergy (Verified 05/30/18 10:59) unsure, hasn't had for awhile - Home Medications Home Medications: Aspirin [Aspirin 81mg (*)] 81 mg PO DAILY 01/02/15 [Last Taken 05/23/18] Hydrochlorothiazide [HCTZ (*)] 6.25 mg PO DAILY 01/02/15 [Last Taken 05/29/18] Multivitamins [Multivitamin (*)] 1 each PO DAILY 01/02/15 [Last Taken 05/23/18] Lovastatin 10 mg PO HS #0 01/28/18 [Last Taken 05/30/18] Methylcellulose [Citrucel] 500 mg PO BID 01/28/18 [Last Taken 05/30/18 05:30] Polyethylene Glycol 3350 [Miralax 17 gm (*)] 17 gm PO DAILY 01/28/18 [Last Taken 05/30/18] Gabapentin [Neurontin 300 MG (*)] 300 mg PO HS 05/22/18 [Last Taken 05/30/18] - Anes Hx Anes Hx: post operative cognitive dysfunction - Smoking Hx Smoking Status: Never smoked Marijuana use: No - Alcohol Use Alcohol Use: Other (1 glass of wine/night) - Family Anes Hx Family Hx Anesthesia Complications: None known ANE Labs/Vital Signs - Vital Signs Height: 167.64 cm Weight: 59.421 kg ANE Physical Exam - Airway Neck exam: FROM Mallampati Score: Class 2 Mouth exam: normal dental/mouth exam - Pulmonary Pulmonary: clear to auscultation - Cardiovascular Cardiovascular: regular rate and rhythym - ASA Status ASA Status: III ANE Anesthesia Plan Anesthesia Plan: general endotracheal anesthesia (Increased risk of periop. cognitive dysfunction discussed with patient's . Questions answered.)
[2018-05-30] MEDS ORDERED: NS 1,000 ML IV SCH (11:45)
[2018-05-30] MEDS ORDERED: PHENYLEPHRINE HCL 100 MCG/ML SYR ONE (11:50)
[2018-05-30] MEDS ORDERED: ePHEDrine SULFATE 25 MG/5 ML SYR ONE (12:12)
[2018-05-30] MEDS ORDERED: PHENYLEPHRINE 10 MG/ML SDV ONE (12:32)
[2018-05-30] MEDS ORDERED: DEPO METHYLPREDNISOLONE 40 MG/ML SDV ONE (12:50)
[2018-05-30] MEDS ORDERED: REMIFENTANIL HCL 1 MG VIAL ONE (12:55)
[2018-05-30] MEDS ORDERED: HYDROmorphONE/DILAUDID 2 MG/ML INJ IVP PRN (13:27)
[2018-05-30] MEDS ORDERED: NALOXONE HCL 0.4 MG/ML INJ IVP PRN (13:27)
[2018-05-30] MEDS ORDERED: fentaNYL 100 MCG/2 ML INJ IVP PRN (13:27)
[2018-05-30] MEDS ORDERED: SUGAMMADEX SODIUM 200 MG/2 ML VIAL IVP ONE (13:49)
--- NOTE | 2018-05-30 13:51 | POSTOPPROG ---
Post Op Note Date of Operation: 05/30/18 Surgeon: Yobany Kingsley Bad Credit Collector: NOEMI Mora Anesthesiologist: MD Clay Anesthesia: GET(General Endotracheal), Local (Specify) Pre-op Diagnosis: Extraforaminal HNP right L2/3 Post-op Diagnosis: Extraforaminal HNP right L2/3 Indication: RLE pain Procedure: right far lateral DARGAN Findings: see op report Inf/Abcess present in the surg proc area at time of surgery?: No Depth: Deep Incisional (Fascial) EBL: Minimal Total fluids administered: see anesthesia report Complications: none
--- NOTE | 2018-05-30 13:53 | SOAPPROG ---
SOAP Progress Note Assessment/Plan: Post op Visit: S: Awake and alert. Pt with expected lower back pain O: AFVSS/PERRLA/EOMI no droop CN 2-12 grossly intact +lt touch 5/5 BUE/BLE = CDI A/P: 78 yo female that is s/p right far lateral DRAGAN at L2/3 -orders in place -call with any questions or concerns -take medications as directed -PT/OT ordered -no bending or twisting -pt seen by Dr Kingsley as well Objective: Vital Signs Temp Pulse Resp BP Pulse Ox 37.0 C 88 12 171/80 H 97 05/30/18 11:30 05/30/18 11:30 05/30/18 11:30 05/30/18 11:30 05/30/18 11:30 ICD10 Worksheet Patient Problems: Problems Problem Status Onset HNP (herniated nucleus pulposus), lumbar Acute Lumbar stenosis Acute Low back pain Acute Vertigo Acute - ICD10 Problem Qualifiers (1) Lumbar stenosis Qualifiers: Neurogenic claudication status: with neurogenic claudication Qualified Code (s): M48.062 - Spinal stenosis, lumbar region with neurogenic claudication (2) HNP (herniated nucleus pulposus), lumbar
[2018-05-30] MEDS ORDERED: ceFAZolin 2 GM/DEXTROSE 100 ML IV SCH (14:00)
--- NOTE | 2018-05-30 14:05 | POSTANESTH ---
Post Anesthetic Evaluation Cardiovascular Status: Similar to Pre-Op Cond Respiratory Status: Normal, Stable Level of Consciousness/Mental Status: Other, See Comment (Pt. appears comfortable and is cooperative.) Pain Control: Adequate, Prn Tx Ordered Nausea/Vomiting Control: Adequate, Prn Tx Ordered Complications Possibly Related to Anesthesia: None Noted
--- NOTE | 2018-05-30 14:27 | GOP ---
DATE OF OPERATION: 05/30/2018 SURGEON: David Kingsley MD NEUROSURGEON: David Kingsley MD VICE PRESIDENT OF PROCUREMENT: Rasta Mora PA-C PREOPERATIVE DIAGNOSIS: Far lateral right herniated disk at L2-3 with a right L2 radiculopathy. POSTOPERATIVE DIAGNOSIS: Far lateral right herniated disk at L2-3 with a right L2 radiculopathy. PROCEDURE PERFORMED: Right far lateral extraforaminal microdiskectomy L2-3 (85400), microscope. FINDINGS: ESTIMATED BLOOD LOSS: 15 cc. INDICATIONS: The patient is an elderly female who since January has had terrible pain in the right hip and right leg, and her MRI back in January really was not terribly impressive. It is unclear what the exact cause was, but a new MRI was done in March because she failed to resolve. We thoug ht she had a problem at L2-3. The new MRI in March showed really a very large foraminal disk frag ment at L2-3 with compression of the exiting nerve root. She continued to have symptoms and wanted t o have surgery, and she was placed on the OR schedule today. The risk of nerve injury, recurrent dis k herniation, CSF leak, spinal instability was discussed. We discussed possible medial approach to t he spine or an extraforaminal, and I suggested extraforaminal. There was no way in my view to reach this disk herniation from a more midline or typical spinal approach. They wanted to proceed despite these risks. They knew there was a chance she would fail to improve. DESCRIPTION OF PROCEDURE: The patient was taken to the operating room, placed in supine position. G eneral anesthesia was begun. She was flipped prone on the Larry frame. Care was taken to pad all p oints of contact. The back was sterilely prepped and draped in usual fashion. A localizing x-ray wa s taken. We made a paramedian incision about 3 cm off the midline adjacent to the L2-3 spinous processes. The subcutaneous tissue was dissected with Bovie cautery just down through the external fascia, and we u sed a muscle-splitting technique to get down to the transverse process. A self-retaining retractor w as placed. Localizing x-ray was taken. We exposed the pars interarticularis of L2. We removed the soft tissue attachments to the pars and identified the radicular vessel and encountered some perineur al fat, which as we moved it, and we encountered a very large exiting L2 nerve root. We actually reza n saw the recurrent sinuvertebral nerve coming over the top of the DRG and diving down into the neura l foramen, and this was totally preserved. It was really wonderful anatomy. We exposed medial to th e DRG and lateral to the DRG. The large segmental vessel was divided lateral to the DRG after coagul ating it. We were unable to mobilize the DRG. It was completely taut and by some underlying mass ri ght underneath it. We tried to go medial to it and could not get really anything out through that ap proach because we could not even move the nerve, so then we came lateral to it and then began removin g piecemeal fragments of free disk fragment herniation from underneath the DRG from a lateral approac h, and then as the nerve relaxed, we were able to move it medially and laterally freely. We removed a huge amount of free disk fragment herniation and got a great decompression. The nerve was totally decompressed. We then went down and looked at the L2-3 disk itself where there was some prolapsed anulus. We divid ed the anulus, removed the disk from the subannular location. There was really no significant compre ssion here. We then irrigated with antibiotic saline solution, placed a little Depo-Medrol over the exiting L2 root, and then closed the incision in multiple layers using Vicryl sutures. A running PDS was placed in the skin itself. There were no complications. The patient tolerated the procedure we ll. We did do intraoperative stim. After removing all the disk material, we never saw any evidence of ne rve irritation during the surgery and we were able to get 1.7 threshold stim on the lateral border. On the medial ventral border of the nerve, we got a 0.3, and on the medial ventral border, we got a 0 .1 and it was the medial dorsal portion of the nerve that stimulated at 0.3, so we had very low stimu lation, and the nerve was totally intact, which was encouraging data. The patient was extubated and transferred to recovery room in stable condition. There were no complications. COMPLICATIONS: None. /[id number]/MODL
[2018-05-30] MEDS ORDERED: HYDROmorphONE/DILAUDID 2 MG/ML INJ ONE (15:49)
[2018-05-30] MEDS: ACETAMINOPHEN 500 MG TAB PO SCH ×2 (17:05→22:03)
[2018-05-30] MEDS: GABAPENTIN 100 MG CAP PO SCH (17:13)
[2018-05-30] MEDS: METHYLCELLULOSE 500 MG PO SCH ×2 (17:16→23:08)
[2018-05-30] MEDS: POLYETHYLENE GLYCOL 3350 17 GM PKT PO SCH (17:16)
[2018-05-30] MEDS: ceFAZolin 2 GM/DEXTROSE 100 ML IV SCH (20:52)
[2018-05-30] MEDS ORDERED: GABAPENTIN 300 MG CAP PO SCH (21:00)
[2018-05-30] MEDS ORDERED: PRAVASTATIN SODIUM 10 MG TAB PO SCH (21:00)
[2018-05-30] MEDS: SENNOSIDES/DOCUSATE SODIUM TAB PO SCH (22:03)
[2018-05-30] MEDS: FAMOTIDINE 20 MG TAB PO SCH (22:03)
[2018-05-31] MEDS: ceFAZolin 2 GM/DEXTROSE 100 ML IV SCH (05:06)
[2018-05-31] MEDS: ACETAMINOPHEN 500 MG TAB PO SCH (06:56)
--- NOTE | 2018-05-31 07:39 | NEUSURGPN ---
Date of Surgery: 05/30/18 Post Op Day: 1 Assessment/Plan: Assessment: 78 yo female that is s/p right far lateral DRAGAN at L2/3 POD #1 Plan: -s/p right far lateral DRAGAN on right at L2/3-pt states that leg is better. Pt has some expected lower back pain -PT/OT pending this am-will dc once cleared by therapies -orders in place -call with any questions or concerns -take medications as directed -no bending or twisting -pt seen by Dr Kingsley as well Subjective: No new complaints or concerns. No f/c/n/v/d. No shafer/neck/chest/abd or gu complaints. Objective: AFVSS/PERRLA/EOMI no droop AAO CN 2-12 grossly intact +lt touch 5/5 BUE/BLE = CDI Neuro Check Frequency: per routine Urinary Catheter in Place: No - Physician Discussed Patient with : Sancho Patient Seen by : Sancho Neurosurgery Physical Exam - Vitals, I&O, Labs I and O 05/30/18 05/31/18 06/01/18 05:59 05:59 05:59 Intake Total 1310 Balance 1310 Weight 59.421 kg Intake: Oral (ml) 360 IV Intake (ml) 950 Vital Signs Temp Pulse Resp BP Pulse Ox 36.7 C 81 18 133/85 H 96 05/30/18 16:35 05/31/18 04:00 05/31/18 04:00 05/31/18 04:00 05/31/18 04:00 ICD10 Worksheet Patient Problems: Problems Problem Status Onset HNP (herniated nucleus pulposus), lumbar Acute Lumbar stenosis Acute Low back pain Acute Vertigo Acute - ICD10 Problem Qualifiers (1) Lumbar stenosis (2) HNP (herniated nucleus pulposus), lumbar
[2018-05-31] MEDS ORDERED: HYDROCHLOROTHIAZIDE 25 MG TAB PO SCH (09:00)
[2018-05-31] MEDS: METHYLCELLULOSE 500 MG PO SCH (09:45)
[2018-05-31] MEDS: POLYETHYLENE GLYCOL 3350 17 GM PKT PO SCH (09:51)
[2018-05-31] MEDS: GABAPENTIN 100 MG CAP PO SCH (09:51)
[2018-05-31] MEDS: SENNOSIDES/DOCUSATE SODIUM TAB PO SCH (09:51)
[2018-05-31] MEDS: FAMOTIDINE 20 MG TAB PO SCH (09:51)
[2018-05-31 09:58] VITALS: BP 134/50
[2018-05-31] MEDS ORDERED: amLODIPine BESYLATE 5 MG TAB PO SCH (10:00)
[2018-06-02] MEDS ORDERED: ENOXAPARIN 40 MG/0.4 ML SYR SC SCH (09:00)
== END 2018-05-31 10:15 | disposition home or self-care (01) ==
LOC: F3E 05:14 → F2N 16:25
PROVIDERS: ADMIT Neurological Surgery; ATTEND Neurological Surgery
PROC: 00NY0ZZ Release Lumbar Spinal Cord, Open Approach (ICD-10-PCS; principal; 2018-05-30 12:30)
PROC: 8E0WXBZ Computer Assisted Procedure of Trunk Region (ICD-10-PCS; principal; 2018-05-30 12:30)
DX: M51.16 Intervertebral disc disorders with radiculopathy, lumbar region (principal); M48.07 Spinal stenosis, lumbosacral region; Z91.81 History of falling; Z96.642 Presence of left artificial hip joint
CPT/HCPCS: 63056; 97166; G0378; J0171; J0690; J1030; J1100; J1170; J2370; J2704; J3010